=== PATIENT | male | born 1940 | race Caucasian/White ===

== ENCOUNTER 2017-06-28 16:38 | Observation (INO) | payer MEDICARE, BC ==
[2017-06-28 17:06] LABS: #Eosinphils 0.3 thou/uL (0.0-0.7); #Lymphocytes 1.6 thou/uL (1.20-3.40); #Monocytes 0.4 thou/uL (0.11-0.59); #Neutrophils 4.6 thou/uL (1.40-6.50); %Basophils 0.2 % (0.0-1.0); %Eosinophils 3.7 % (0.0-10.0); %Lymphocytes 22.8 % (21.0-51.0); %Monocytes 6.4 % (0.0-10.0); %Neutrophils 66.8 % (42.0-75.0); Mean Corpuscular HGB CONC 33.8 g/dL (32.0-36.0); Mean Corpuscular Hemoglobin 32.2 pg (27.0-31.0); Mean Corpuscular Volume 95.3 fl (80.0-94.0); Mean Platelet Volume 7.3 fL (7.4-10.4); Platelet Count 192 thou/uL (130-400); RBC Distribution Width 12.2 % (11.5-14.5); Red Blood Cell (RBC) Count 4.65 mill/uL (4.70-6.10); White Blood Cell (WBC) Count 6.8 thou/uL (4.8-10.8)
[2017-06-28 17:15] LABS: PTT 31.1 SEC (22.9-36.1); Prothrombin Time 13.4 SEC (12.0-14.7)
[2017-06-28 17:19] LABS: ALT (SGPT) 11 U/L (8-55); AST (SGOT) 15 U/L (5-34); Albumin 4.3 g/dL (3.4-4.8); Alkaline Phosphatase 58 U/L (40-150); Anion Gap 10 mmol/L (10-20); BUN (Urea Nitrogen) 16 mg/dL (8.4-25.7); Bilirubin, Total 0.4 mg/dL (0.2-1.2); Calc. Creatinine Clearance 0 mL/min (70-130); Calcium 9.6 mg/dL (7.8-10.44); Carbon Dioxide 30 mmol/L (23-31); Chloride 103 mmol/L (98-107); Estimated GFR-MDRD 58; Globulin 2.9 g/dL (2.4-3.5); Glucose 106 mg/dL (83-110); Potassium 4.2 mmol/L (3.5-5.1); Protein, Total 7.2 g/dL (5.8-8.1); Sodium 139 mmol/L (136-145)
[2017-06-28 17:23] LABS: CKMB 1.8 ng/mL (0-6.6); Troponin I 0.011 ng/mL (< 0.028)
--- NOTE | 2017-06-28 18:09 | CT ---
CT HEAD NONCONTRAST 06/28/17 HISTORY: TIA. Right facial numbness. Symptoms have resolved. FINDINGS: No comparison. There is no evidence of acute intracranial hemorrhage or infarct. Ventricles appear normal in size, s hape, and position. Mild chronic ischemic small vessel disease is apparent within the periventricular white matter of each cerebral hemisphere. Calcifications present within the arterial structures. Pun ctate calcifications within the sulci of the upper right frontal lobe are not typical appearance and could be within any of the peripheral arteries. There is also subtle hyperdensity associated with the right middle cerebral artery. Given the lack of symptoms to correlate with right middle cerebral art brock thrombus, however, this is likely artifactual in nature. IMPRESSION: 1. No acute infarct is reliably demonstrated on noncontrast CT head. 2. Atherosclerosis. Calcification within the right posterior frontal sulci could be within perip heral arteries, as detailed above. Findings were called to Dr. Guerra in the Emergency Department at 1651 hours. Code CR. POS: ADRIENNE
[2017-06-28] MEDS ORDERED: Ondansetron ODT 4 MG TAB SL PRN (18:56)
[2017-06-28] MEDS ORDERED: Ondansetron HCl/PF 4 MG/2 ML Vial IVP PRN (18:56)
[2017-06-28] MEDS ORDERED: Acetaminophen 325 MG TAB PO PRN (18:56)
[2017-06-28 19:25] VITALS: BMI 25.7
[2017-06-29] MEDS ORDERED: hydrALAZINE 20 MG/ML VIAL SLOW IVP PRN (01:17)
[2017-06-29] MEDS ORDERED: Acetaminophen 500 MG TAB PO PRN (01:17)
[2017-06-29] MEDS ORDERED: cloNIDine 0.1 MG TAB PO PRN (01:17)
[2017-06-29] MEDS ORDERED: Ondansetron ODT 4 MG TAB PO PRN (01:17)
[2017-06-29] MEDS ORDERED: Ondansetron HCl/PF 4 MG/2 ML Vial IVP PRN (01:17)
[2017-06-29 05:50] LABS: Eosinophils 1 % (0-10); Hemoglobin 13.9 g/dL (14.0-18.0); Lymphocytes 24 % (21-51); MDiff Complete? YES; Mean Corpuscular HGB CONC 33.9 g/dL (32.0-36.0); Mean Corpuscular Volume 94.4 fl (80.0-94.0); Mean Platelet Volume 7.3 fL (7.4-10.4); Monocytes 7 % (0-10); Neutrophil 68 % (42-75); Platelet Count 172 thou/uL (130-400); Red Blood Cell (RBC) Count 4.32 mill/uL (4.70-6.10); White Blood Cell (WBC) Count 6.7 thou/uL (4.8-10.8)
[2017-06-29 06:07] LABS: Cardiac Risk 5.7 (Less than 4.5)
--- NOTE | 2017-06-29 06:15 | HP ---
DATE OF ADMISSION: 06/28/2017 PRIMARY CARE PHYSICIAN: Melania Gomez MD CHIEF COMPLAINT: Facial numbness, difficulty with speech. HISTORY OF PRESENT ILLNESS: This is a 76-year-old male who presented to [facility] Emergency Department after experiencing sudden onset right facial droop, numbness, and difficulty w ith speech. The patient states he had just checked an email at home and was not doing anything stren uous when the symptoms began. The patient states his face felt heavy on the right and he had difficu lty with speaking. The patient denied any specific headache, visual disturbance, difficulty with hea ring, or recent fall. The patient denies any recent sick contacts, fever, or exposure history. The symptoms apparently began approximately 1600 hours on 06/28/2017, at which point, the patient was charissa luated by EMS personnel. The patient's symptoms had improved and were resolving by the time of evalu ation in the emergency room. The patient does admit to taking aspirin 81 mg 3 times per week. The p atient has a remote history of smoking approximately 20 years prior to this evaluation. The patient does admit to a personal history of hypertension, medically managed and apparently controlled to his knowledge. The patient states he has had hyperlipidemia, but unable to take statin agents. The goldy ent states he had multiple side effects with the statin agents and was subsequently taken off this re gimen. In the emergency room, the patient underwent general evaluation and general stroke protocol i ncluding CT imaging of the brain showing no acute process. The patient received aspirin 324 mg x1 do se and was referred to the stroke unit for evaluation. PAST MEDICAL HISTORY: 1. Hypertension, medically managed. 2. Hyperlipidemia, no current treatment. 3. History of shingles. PAST SURGICAL HISTORY: 1. Status post left shoulder repair. 2. Status post left carpal tunnel release. 3. Status post bilateral cataract removal. 4. Status post tonsillectomy. CURRENT MEDICATIONS: 1. Aspirin 81 mg 1 tab p.o. every other day. 2. Valsartan/hydrochlorothiazide 80/12.5 mg 1 tab p.o. daily. 3. Nexium 40 mg Monday, Monday, and Monday. 4. Livalo 1 mg p.o. daily. ALLERGIES: No known drug allergies. FAMILY HISTORY: Mother and father with history of heart disease, unknown type. SOCIAL HISTORY: Patient is and resides in [place], [place]. Accompanied by his in the hospital. Remote history of tobacco 20 years prior to this evaluation. No alcohol or illicit drug u se. REVIEW OF SYSTEMS: The following complete review of systems was negative, unless otherwise mentioned in the HPI or below: Constitutional: Weight loss or gain, ability to conduct usual activities. Sk in: Rash, itching. Eyes: Double vision, pain. ENT/Mouth: Nose bleeding, neck stiffness, pain, te nderness. Cardiovascular: Palpitations, dyspnea on exertion, orthopnea. Respiratory: Shortness of breath, wheezing, cough, hemoptysis, fever or night sweats. Gastrointestinal: Poor appetite, abdom inal pain, heartburn, nausea, vomiting, constipation, or diarrhea. Genitourinary: Urgency, frequenc y, dysuria, nocturia. Musculoskeletal: Pain, swelling. Neurologic/Psychiatric: Anxiety, depressio n. Allergy/Immunologic: Skin rash, bleeding tendency. PHYSICAL EXAMINATION: VITAL SIGNS: On admission, blood pressure 116/81, pulse 85, respiratory rate 24, temperature 98.9 de grees Fahrenheit, O2 saturation 99% on room air. GENERAL APPEARANCE: This is a 76-year-old male, alert and oriented x3, pleasant, smiling, in no acute distress. HEENT: Pupils are equal, round, and reactive to light and accommodation. Extraocular muscles are in tact. No scleral icterus, no conjunctival injection. Nares patent. OP is clear. Teeth in good rep air. NECK: Supple. No cervical adenopathy, no thyromegaly, no carotid bruits, no JVD appreciated. Cervi barrie spine with full active and passive range of motion. No meningeal signs appreciated. CHEST: Lungs are clear to auscultation bilaterally. CARDIOVASCULAR: S1, S2 with extra beats noted. ABDOMEN: Rounded, soft, nontender, nondistended. Bowel sounds are positive in all four quadrants. There is no hepatosplenomegaly, no abdominal bruits, no rebound or guarding appreciated. EXTREMITIES: Warm and dry with fair turgor. No clubbing, cyanosis, or asymmetric edema appreciated. Pulses are palpable distally at the dorsalis pedis, posterior tibial, and popliteal arteries bilate rally. Capillary refill less than 2 seconds. NEUROLOGIC: Cranial nerves II through XII are grossly intact. No focal or lateralizing signs apprec iated. No facial asymmetry noted. The patient moves all extremities with equal strength in the uppe r and lower extremities. PERTINENT LABORATORY AND X-RAY FINDINGS: Complete metabolic profile within normal limits. CBC showe d MCV of 95. PT 13.4, INR 1.0, PTT 31.1. CT of the brain without contrast dated 06/28/2017 showed n o acute intracranial process. EKG dated 06/28/2017 by my interpretation shows sinus mechanism with p remature ventricular complexes. Attenuated R waves noted in the precordial leads. Left axis deviati on. ASSESSMENT AND PLAN: 1. Suspected transient ischemic attack. The patient will be placed in observation status on the [facility] sondra Unit. We will continue with general workup to include 2D transthoracic echocardiogram and caroti d Doppler study. The patient's current NIH score was 0. We will not pursue MRI imaging of the brain due to lack of deficits. Continue aspirin 324 mg p.o. daily. Check fasting lipid profile. Continu e general stroke protocol. 2. Hypertension. Resume home antihypertensive regimen to include valsartan/hydrochlorothiazide. Mo nitor serial blood pressures. 3. Question of hyperlipidemia. Check fasting lipid profile in the a.m. 4. Chronic kidney disease, stage 2-3. Stable currently after reviewing electronic medical record an d overall creatinine trend. Avoid nephrotoxic agents and contrast media. 5. Prophylaxis. Sequential compression devices while in bed. Pepcid 20 mg p.o. b.i.d. 6. Code status: Full. Surrogate medical decision maker is patient's spouse.
[2017-06-29] MEDS ORDERED: Valsartan 80 MG TAB PO SCH (09:00)
[2017-06-29] MEDS ORDERED: Famotidine 20 MG TAB PO SCH (09:00)
[2017-06-29] MEDS ORDERED: Hydrochlorothiazide 25 MG TAB PO SCH (09:00)
[2017-06-29] MEDS ORDERED: Aspirin 325 mg Enteric Coated Tablet PO SCH (09:00)
--- NOTE | 2017-06-29 09:16 | ULT ---
CAROTID ULTRASOUND: History: Possible TIA. Comparison: None. Technique: Grayscale, color flow, doppler imaging, and spectral waveform analysis is performed in the carotid vertebral arteries. FINDINGS: Right carotid: There are small foci of calcified plaque scattered throughout the carotid artery. Peak systolic velocity of the common carotid is 125.8 cm/sec. Peak systolic velocity internal carotid is 142.2 cm/sec. Systolic ICA/CCA ratio is 1.1. Left carotid: There is scattered small calcified plaque throughout the left carotid artery. Peak syst olic velocity of the common carotid is 112.3 cm/sec. Peak systolic velocity internal carotid is 138.4 cm/sec. Systolic ICA/CCA ratio is 1.2. Antegrade flow in both vertebral arteries. IMPRESSION: Elevated velocities suggesting moderate (50-69%) stenosis of the left and right internal carotid. Bet ter interrogation with CT angiogram of the neck is recommended. POS: ADRIENNE
[2017-06-29 11:45] VITALS: BP 130/75; TEMP 98
[2017-06-29] MEDS ORDERED: ISOVUE-370 76%-LOCM 1 ML ONE (13:29)
--- NOTE | 2017-06-29 14:44 | PDOC.PN ---
- Subjective Encounter Start Date: 06/29/17 Encounter Start Time: 14:42 Mr. Suero was seen today in follow-up. she says the numbness has completely resolved on the right side. He never had any upper or lower extremity weakness. - Objective Resuscitation Status: Resuscitation Status FULL:Full Resuscitation MAR Reviewed: Yes Vital Signs & Weight: Vital Signs (12 hours) Temp Pulse Resp BP BP Pulse Ox 06/29/17 11:25 98 F 77 18 130/75 97 06/29/17 08:00 97 F L 65 16 06/29/17 07:05 97 F L 65 16 147/66 H 97 06/29/17 03:33 98.3 F 40 L 16 114/63 95 Weight Weight 190 lb I&O: 06/28/17 06/29/17 06/30/17 06:59 06:59 06:59 Intake Total 380 600 Balance 380 600 Result Diagrams: 06/29/17 05:23 06/28/17 16:59 Phys Exam - Physical Examination HEENT: PERRLA Respiratory: no wheezing, no rales, no rhonchi, clear to auscultation bilateral Cardiovascular: RRR, no significant murmur Gastrointestinal: soft, non-tender, positive bowel sounds Musculoskeletal: no edema Neurological: non-focal Dx/Plan (1) Transient ischemic attack Status: Acute (2) Hypertension Code(s): I10 - ESSENTIAL (PRIMARY) HYPERTENSION Status: Acute (3) Dyslipidemia Code(s): E78.5 - HYPERLIPIDEMIA, UNSPECIFIED Status: Acute - Plan * TIA- patient had evidence of elevated velocities on his carotid doppler- will check a CTA * HTN - blood pressure is stable * Patient has been in sinus rhythm, but his heart rate is variable- will monitor * Hyperlipidemia- he is unable to tolerate statin's- this was discussed in detail, includingtrying it once a week, and possibly aong with Co- Q-10..
--- NOTE | 2017-06-29 16:37 | CT ---
CTA NECK WITH 3D VOLUME RENDERING CT NECK WITH CONTRAST 06/29/17 CLINICAL HISTORY: Vascular disease. History of carotid stenosis and TIA. FINDINGS: The imaged aortic arch reveals calcification without high grade stenosis. There is calcification at t he origins as well as noncalcified plaque at the origins of the great vessels that emanate from the a ortic arch with mild associated luminal narrowing. There is scattered calcified and noncalcified plaq ue of the bilateral common carotid arteries with mild associated stenosis. There is extensive calcifi ed and noncalcified plaque at the level of the right carotid bulb which my NASCET criteria results in approximate 60% focal stenosis. In addition, there is extensive calcified and noncalcified plaque at the level of the left carotid bulb producing approximately 50% focal stenosis. There is focal calcif ication mild to moderate in degree at the origin of the left vertebral artery with tortuosity within this region which does somewhat limit evaluation for the exact degree of associated stenosis. There i s also calcification producing mild stenosis at the distal left vertebral artery within the V4 segmen t. Suggestion of soft plaque although limited by streak artifact at the origin/proximal aspect of the right vertebral artery with a moderate associated focal stenosis. There is partial termination of th e right vertebral artery in PICA. Calcification is seen at the partially imaged aspects of each intra cranial carotid artery. Patchy opacities are incidentally noted within the upper lung zones. There is osseous degenerative change regionally. IMPRESSION: Multifocal atherosclerotic vascular disease in major arterial system of the neck producing an approxi mate 60% focal stenosis at the proximal aspect of the cervical right ICA and approximately 50% focal stenosis of the proximal aspect of the cervical left ICA. Additional details are described above. POS: ADRIENNE
[2017-06-29] MEDS ORDERED: Atorvastatin Calcium 20 MG TAB PO SCH (21:00)
--- NOTE | 2017-06-30 12:41 | DIS ---
DATE OF ADMISSION: 06/28/2017 DATE OF DISCHARGE: 06/29/2017 PRIMARY CARE PHYSICIAN: Melania Gomez MD DISCHARGE DISPOSITION: Home. PRIMARY DISCHARGE DIAGNOSES: 1. Transient ischemic attack. 2. Hypertension. 3. Hyperlipidemia. DISCHARGE MEDICATIONS: Include aspirin 81 mg daily, Lipitor 10 mg at bedtime, valsartan/hydrochlorot hiazide 80/12.5 daily. PROCEDURES DONE DURING ADMISSION: The patient had a CT scan of the brain in which there was no acute infarct. There was some arteriosclerosis and calcification of the right posterior frontal sulci. T he patient had an echocardiogram in which the ejection fraction was estimated at 55%-60%. There was some septal bounce consistent with bundle branch morphology, RBBB morphology and also there was a gra de I/III diastolic dysfunction. The patient had bilateral carotid Dopplers in which there was an yoly vated velocity suggesting moderate 50%-69% stenosis of the left and right internal carotid artery. T he patient had a CT angiogram of the carotids and vertebral system or CTA of the neck in which there was multifocal atherosclerosis and vascular disease in the major arterial system of the neck, produci ng an approximately 50% focal stenosis of the proximal aspect of the cervical right ICA and approxima tely 50% stenosis in the proximal aspect of the cervical left ICA. CODE STATUS: FULL CODE. ALLERGIES: No known drug allergies. HOSPITAL COURSE: Mr. Suero is a pleasant 76-year-old gentleman who presented to the emergency room with complaints of sudden right-sided facial droop, numbness and difficulty with speech. Symptoms l asted for several hours, but then completely resolved. He was placed in observation and had an evalu ation for transient ischemic attack. It was noted that he had some moderate stenosis in the right IC A. This was discussed with the patient and patient made the decision to talk with his primary care elias tesfaye about this. The patient decided to discuss primary care physician and get transferred to a vascular surgeon or referred to vascular surgeon in the outpatient setting. He had not been taking a statin at the time as he said he had quite a bit of side effects from it. However, given these new findings, he said he would be willing to try this again possibly along with CoQ10 and since his sympt oms completely resolved, he will be discharged home with close outpatient followup.
--- NOTE | 2017-07-01 13:09 | EKG ---
Test Reason : Blood Pressure : / mmHG Vent. Rate : 082 BPM Atrial Rate : 082 BPM P-R Int : 178 ms QRS Dur : 086 ms QT Int : 386 ms P-R-T Axes : 050 -02 039 degrees QTc Int : 450 ms Sinus rhythm with frequent Premature ventricular complexes Cannot rule out Anterior infarct , age undetermined Abnormal ECG Confirmed by NAHUM SAAB [id number]), market editor HIEU SALDIVAR ([id number]) on 07/01/2017 1:08:58 PM Referred By: Confirmed By:NAHUM SAAB
== END 2017-06-29 18:36 | disposition home or self-care (01) ==
LOC: ERS 16:38 → 2SE 18:03
PROVIDERS: ADMIT Internal Medicine; ATTEND Internal Medicine
DX: G45.9 Transient cerebral ischemic attack, unspecified (principal); I10 Essential (primary) hypertension; E78.5 Hyperlipidemia, unspecified; Z79.82 Long term (current) use of aspirin; Z79.899 Other long term (current) drug therapy; Z98.890 Other specified postprocedural states; Z87.891 Personal history of nicotine dependence; Z82.49 Family history of ischemic heart disease and other diseases of the circulatory system
CPT/HCPCS: 70450; 70498; 80053; 80061; 82553; 82962; 84484; 85007; 85025; 85027; 85610; 85730; 93005; 93306; 93880; 94760; 99285; G0378; 36415; 36416

== ENCOUNTER 2018-10-09 13:01 | Outpatient (CLI) | payer MEDICARE, BC ==
--- NOTE | 2018-10-09 13:35 | RAD ---
Lumbar spine 5 views HISTORY: Low back pain. FINDINGS: There are 5 lumbar type vertebrae. Pedicles and pars interarticularis are intact. Vertebral body heights and alignment are maintained. Prominent osteophytosis of the lower facets and the upper vertebral bodies. No acute fracture or dislocation. Calcification over the arterial structures. Degenerative changes of the hips. IMPRESSION: Degenerative changes lumbar spine. No acute osseous abnormalities are demonstrated. Atherosclerosis
--- NOTE | 2018-10-09 13:35 | RAD ---
Exam:2 views right hip HISTORY: Pain COMPARISON: None FINDINGS: Contour of the femoral head is maintained. Mild loss of the inferior joint space height. IMPRESSION: Mild narrowing of the inferior joint space height.
--- NOTE | 2018-10-09 13:36 | RAD ---
Exam:2 views left hip HISTORY: Pain COMPARISON: None FINDINGS: Contour of the femoral head is maintained. Mild loss of the inferior joint space height. No fracture. IMPRESSION: Mild loss of the inferior joint space height.
== END 2018-10-09 13:02 | disposition home or self-care (01) ==
LOC: SCSRAD 13:01
PROVIDERS: ATTEND Family Medicine
DX: Z00.00 Encounter for general adult medical examination without abnormal findings (principal); M25.551 Pain in right hip; M25.552 Pain in left hip; M47.816 Spondylosis without myelopathy or radiculopathy, lumbar region; I70.90 Unspecified atherosclerosis; M25.851 Other specified joint disorders, right hip
CPT/HCPCS: 72110

== ENCOUNTER 2020-10-20 12:14 | Outpatient (CLI) | payer MEDICARE, BC | END 2020-10-20 12:15 | disposition home or self-care (01) | LOC: BICRAD 12:14 | PROVIDERS: ATTEND Family Medicine | DX: R10.11 Right upper quadrant pain (principal) | CPT/HCPCS: 74022 ==

== ENCOUNTER 2023-04-28 10:47 | Emergency (ER) | payer MEDICARE, BC ==
[2023-04-28 12:31] LABS: #Eosinphils 0.2 thou/uL (0.0-0.7); #Monocytes 0.4 thou/uL (0.11-0.59); #Neutrophils 4.4 thou/uL (1.40-6.50); %Basophils 0.5 % (0.0-1.0); %Eosinophils 2.4 % (0.0-10.0); %Lymphocytes 20.7 % (21.0-51.0); %Monocytes 6.6 % (0.0-10.0); %Neutrophils 69.3 % (42.0-75.0); Hematocrit 41.9 % (42.0-52.0); Hemoglobin 14.2 g/dL (14.0-18.0); Mean Corpuscular HGB CONC 33.9 g/dL (32.0-36.0); Mean Corpuscular Hemoglobin 32.5 pg (27.0-31.0); Mean Corpuscular Volume 95.9 fl (78.0-98.0); Mean Platelet Volume 9.5 fL (7.4-10.4); Platelet Count 186 10x3/uL (130-400); RBC Distribution Width 12.5 % (11.5-14.5); Red Blood Cell (RBC) Count 4.37 mill/uL (4.70-6.10); White Blood Cell (WBC) Count 6.3 10x3/uL (4.8-10.8)
[2023-04-28 12:56] LABS: ALT (SGPT) 13 U/L (8-55); AST (SGOT) 21 U/L (5-34); Albumin 4.2 g/dL (3.4-4.8); Alkaline Phosphatase 60 U/L (40-110); Anion Gap 12 mmol/L (10-20); BUN (Urea Nitrogen) 12 mg/dL (8.4-25.7); Bilirubin, Total 0.7 mg/dL (0.2-1.2); Calc. Creatinine Clearance 0 mL/min (70-130); Calcium 9.3 mg/dL (7.8-10.44); Carbon Dioxide 27 mmol/L (23-31); Chloride 102 mmol/L (98-107); Estimated GFR 86; Globulin 3.1 g/dL (2.4-3.5); Glucose 94 mg/dL (83-110); Potassium 3.7 mmol/L (3.5-5.1); Protein, Total 7.3 g/dL (5.8-8.1); Sodium 137 mmol/L (136-145)
[2023-04-28 13:01] LABS: Troponin I Less than 0.010 ng/mL (< 0.028)
== END 2023-04-28 13:21 | disposition home or self-care (01) ==
LOC: ERS 10:47
DX: R68.84 Jaw pain (principal); I10 Essential (primary) hypertension; E78.5 Hyperlipidemia, unspecified; Z79.82 Long term (current) use of aspirin
CPT/HCPCS: 36415; 70450; 71045; 80053; 84484; 85025; 93005

== ENCOUNTER 2024-01-26 09:23 | Outpatient (CLI) | payer MEDICARE ==
[2024-01-26 11:24] LABS: #Basophils 0.05 10x3/uL (0.0-0.2); %Basophils 0.8 % (0.0-1.0); %Eosinophils 4.6 % (0.0-10.0); %Lymphocytes 23.8 % (21.0-51.0); %Monocytes 7.7 % (0.0-10.0); %Neutrophils 62.5 % (42.0-75.0); Hematocrit 42.7 % (42.0-52.0); Hemoglobin 14.6 g/dL (14.0-18.0); Mean Corpuscular HGB CONC 34.2 g/dL (32.0-36.0); Mean Corpuscular Hemoglobin 32.7 pg (27.0-31.0); Mean Corpuscular Volume 95.5 fL (78.0-98.0); Mean Platelet Volume 10.1 fL (7.4-10.4); Platelet Count 182 10x3/uL (130-400); RBC Distribution Width 12.9 % (11.5-14.5); Red Blood Cell (RBC) Count 4.47 mill/uL (4.70-6.10)
[2024-01-26 11:40] LABS: ALT (SGPT) 16 U/L (8-55); AST (SGOT) 25 U/L (5-34); Alkaline Phosphatase 52 U/L (40-110); Anion Gap 11 mmol/L (10-20); BUN (Urea Nitrogen) 13 mg/dL (8.4-25.7); Bilirubin, Total 0.6 mg/dL (0.2-1.2); Calc. Creatinine Clearance 0 mL/min (70-130); Calcium 9.5 mg/dL (7.8-10.44); Carbon Dioxide 30 mmol/L (23-31); Chloride 100 mmol/L (98-107); Estimated GFR 74; Globulin 3.2 g/dL (2.4-3.5); Glucose 99 mg/dL (83-110); Potassium 3.4 mmol/L (3.5-5.1); Protein, Total 7.2 g/dL (5.8-8.1); Sodium 138 mmol/L (136-145)
== END 2024-01-26 09:24 | disposition home or self-care (01) ==
LOC: LABBT 09:23
PROVIDERS: ATTEND Internal Medicine Cardiovascular Disease
DX: Z01.812 Encounter for preprocedural laboratory examination (principal); I20.9 Angina pectoris, unspecified; R94.39 Abnormal result of other cardiovascular function study
CPT/HCPCS: 80053; 85025

== ENCOUNTER 2024-02-01 05:31 | Inpatient (IN) | payer MEDICARE ==
[2024-02-01] MEDS ORDERED: Midazolam HCl 2 mg/2 ml Vial ONE (06:25)
[2024-02-01] MEDS ORDERED: fentaNYL 50 mcg/mL 1 mL Vial ONE (06:25)
[2024-02-01] MEDS ORDERED: Heparin 10,000 UNITS/ 10 ML VIAL ONE (06:26)
[2024-02-01] MEDS ORDERED: Nitroglycerin 50 MG/250 ML BOT 250 ML ONE (06:26)
[2024-02-01] MEDS ORDERED: Verapamil 5 MG/2 ML VIAL ONE (06:26)
[2024-02-01] MEDS ORDERED: Atropine Sulfate 1 mg/10 ml Syringe ONE (07:37)
[2024-02-01] MEDS ORDERED: PHENYLEPHRINE-NS 100 MCG/ML 10 ML SYRINGE ONE (07:37)
[2024-02-01] MEDS ORDERED: Ondansetron PF 4 MG/2 ML Vial IVP PRN (08:24)
[2024-02-01] MEDS ORDERED: Senokot S 8.6-50 MG TAB PO PRN (08:24)
[2024-02-01] MEDS ORDERED: Acetaminophen 325 MG TAB PO PRN (08:24)
[2024-02-01] MEDS ORDERED: Calcium Carbonate 500 MG ChewTAB PO PRN (08:24)
[2024-02-01] MEDS ORDERED: Non-Formulary Item 1 EACH (Oxybutynin Chloride [Oxybutynin Chloride Er] 10 MG Tab.Er.24) PO SCH (09:00)
[2024-02-01] MEDS ORDERED: hydrALAZINE 20 MG/ML VIAL SLOW IVP PRN (09:00)
[2024-02-01] MEDS ORDERED: hydrALAZINE 20 MG/ML VIAL ONE (09:05)
[2024-02-01] MEDS: Hydrochlorothiazide 25 MG TAB PO SCH (11:25)
[2024-02-01] MEDS: Isosorbide Mononitrate 30 MG ER.TAB PO SCH (11:25)
[2024-02-01] MEDS: Ezetimibe 10 MG TAB PO SCH (11:25)
[2024-02-01] MEDS: Oxybutynin ER 5 MG TAB PO SCH (11:26)
[2024-02-01] MEDS: Tamsulosin HCl 0.4 MG CAP PO SCH (11:26)
[2024-02-01] MEDS: Meloxicam 7.5 MG TAB PO SCH (11:26)
[2024-02-01] MEDS: CO Q-10 CAPSULE 100 MG PO SCH (11:26)
[2024-02-01] MEDS ORDERED: Enoxaparin 40 MG (0.4 mL) SYRINGE ONE (11:49)
[2024-02-01] MEDS: Enoxaparin 40 MG (0.4 mL) SYRINGE SC SCH (12:02)
[2024-02-01] MEDS ORDERED: Iopamidol 370 76% 100 ML VIAL ONE (12:24)
[2024-02-01] MEDS: Aspirin Chewable 81 MG TAB PO SCH (12:52)
[2024-02-01 16:55] LABS: #Basophils 0.03 10x3/uL (0.0-0.2); %Basophils 0.4 % (0.0-1.0); %Eosinophils 2.6 % (0.0-10.0); %Lymphocytes 15.6 % (21.0-51.0); %Monocytes 7.2 % (0.0-10.0); %Neutrophils 73.6 % (42.0-75.0); Hematocrit 44.7 % (42.0-52.0); Hemoglobin 15.5 g/dL (14.0-18.0); Mean Corpuscular HGB CONC 34.7 g/dL (32.0-36.0); Mean Corpuscular Hemoglobin 32.7 pg (27.0-31.0); Mean Corpuscular Volume 94.3 fL (78.0-98.0); Mean Platelet Volume 9.6 fL (7.4-10.4); Platelet Count 187 10x3/uL (130-400); RBC Distribution Width 12.7 % (11.5-14.5); Red Blood Cell (RBC) Count 4.74 mill/uL (4.70-6.10)
[2024-02-01 17:15] LABS: INR-International Normal Ratio 1.1
[2024-02-01 17:16] LABS: PTT 36.1 sec (22.9-36.1)
[2024-02-02 04:39] LABS: #Basophils Less than 0.03 10x3/uL (0.0-0.2); %Basophils 0.3 % (0.0-1.0); %Eosinophils 3.5 % (0.0-10.0); %Lymphocytes 19.9 % (21.0-51.0); %Monocytes 8.4 % (0.0-10.0); %Neutrophils 67.6 % (42.0-75.0); Hematocrit 38.6 % (42.0-52.0); Hemoglobin 13.7 g/dL (14.0-18.0); Mean Corpuscular HGB CONC 35.5 g/dL (32.0-36.0); Mean Corpuscular Hemoglobin 32.6 pg (27.0-31.0); Mean Corpuscular Volume 91.9 fL (78.0-98.0); Mean Platelet Volume 9.6 fL (7.4-10.4); Platelet Count 167 10x3/uL (130-400); RBC Distribution Width 12.8 % (11.5-14.5)
[2024-02-02 04:58] LABS: Hemoglobin A1c 5.4 % (4.0-6.0)
[2024-02-02] MEDS ORDERED: Bupivacaine PF 0.5% 30 ML VIAL ONE (06:44)
[2024-02-02] MEDS ORDERED: EPINEPHrine 1 MG/ML VIAL ONE (06:44)
[2024-02-02] MEDS ORDERED: Dexamethasone 4 mg/ml Vial ONE (06:44)
[2024-02-02] MEDS ORDERED: PHENYLEPHRINE-NS 100 MCG/ML 10 ML SYRINGE ONE (06:44)
[2024-02-02] MEDS ORDERED: Albumin 5% 0 ML ONE (06:45)
[2024-02-02 07:36] LABS: ALT (SGPT) 14 U/L (8-55); AST (SGOT) 23 U/L (5-34); Albumin 3.6 g/dL (3.4-4.8); Alkaline Phosphatase 48 U/L (40-110); Anion Gap 12 mmol/L (10-20); BUN (Urea Nitrogen) 17 mg/dL (8.4-25.7); Bilirubin, Total 0.5 mg/dL (0.2-1.2); Calc. Creatinine Clearance 58 mL/min (70-130); Calcium 9.2 mg/dL (7.8-10.44); Carbon Dioxide 27 mmol/L (23-31); Chloride 104 mmol/L (98-107); Cholesterol 159 mg/dl (< 200 Desired); Estimated GFR 60; Globulin 2.8 g/dL (2.4-3.5); Glucose 82 mg/dL (83-110); HDL Cholesterol 32 mg/dL (>60 Neg Risk); LDL Cholesterol, Calculated 80 mg/dL; Potassium 3.1 mmol/L (3.5-5.1); Protein, Total 6.4 g/dL (5.8-8.1); Sodium 140 mmol/L (136-145); Triglycerides 237 mg/dL (Less than 150)
[2024-02-02] MEDS ORDERED: Electrolyte Replacement Protocol 1 EACH FS SCH (08:00)
[2024-02-02] MEDS ORDERED: CEFAZOLIN 2 GM VIAL ONE (08:07)
[2024-02-02] MEDS ORDERED: Sodium Chloride 0.9% 100 ML ONE (08:07)
[2024-02-02] MEDS ORDERED: Fentanyl 250 MCG/5 ML VIAL ONE (08:40)
[2024-02-02] MEDS ORDERED: PROPOFOL 20 ML ONE (08:40)
[2024-02-02] MEDS ORDERED: Midazolam HCl 2 mg/2 ml Vial ONE (08:40)
[2024-02-02] MEDS ORDERED: Lidocaine 1% PF 5 ML VIAL ONE (08:44)
[2024-02-02] MEDS ORDERED: Rocuronium Bromide 10 MG/ML (10ML VIAL) ONE (08:44)
[2024-02-02] MEDS ORDERED: NOREPINEPHRINE 8 MG/250 ML-D5W 0 ML ONE (08:58)
[2024-02-02] MEDS ORDERED: Milrinone 10 MG/10 ML VIAL ONE (08:59)
[2024-02-02] MEDS ORDERED: FLU (Fluad Triv) TS24-25 (65UP)/MF59C/PF 45 MCG/0.5 ML Syringe IM ONE (09:00)
[2024-02-02] MEDS ORDERED: Pantoprazole DR 40 MG TAB PO SCH (09:00)
[2024-02-02] MEDS ORDERED: CEFAZOLIN 2 GM in Sodium Chloride 0.9% 100 ML IVPB SCH (10:00)
[2024-02-02] MEDS ORDERED: Magnesium 2 GM/50 ML(in water) 2 GM in Premix 1 BAG IVPB SCH (10:00)
[2024-02-02] MEDS ORDERED: Heparin 30,000 units/30 ml VIAL ONE (12:44)
[2024-02-02] MEDS ORDERED: Magnesium 5 GM/10 ML VIAL ONE (12:44)
[2024-02-02] MEDS ORDERED: Heparin 5,000 UNITS/ML VIAL ONE (12:44)
[2024-02-02] MEDS ORDERED: Protamine Sulfate 250 MG/25 ML VIAL ONE (12:44)
[2024-02-02] MEDS ORDERED: Sodium Bicarb 50 mEq/50 ML VIAL ONE (12:44)
[2024-02-02] MEDS ORDERED: Calcium Chloride 1 GM/10 ML Abboject SYRINGE ONE (12:44)
[2024-02-02] MEDS ORDERED: Vancomycin 1 GM VIAL ONE (12:44)
[2024-02-02] MEDS ORDERED: Mannitol 12.5 GM/50 ML ONE (12:44)
[2024-02-02] MEDS ORDERED: Papaverine 60 MG/2 ML VIAL ONE (12:44)
[2024-02-02] MEDS ORDERED: Ondansetron PF 4 MG/2 ML Vial ONE (12:44)
[2024-02-02] MEDS ORDERED: Potassium Chloride 60 mEq (30 mL) VIAL ONE (12:44)
[2024-02-02] MEDS ORDERED: Thrombin 5000 UNITS/5 ML VIAL ONE (12:44)
[2024-02-02] MEDS ORDERED: Cardioplegic Soln 1,000 ML BAG ONE (12:44)
[2024-02-02] MEDS ORDERED: Aminocaproic Acid 5 GM/20 ML VIAL ONE (12:44)
[2024-02-02] MEDS ORDERED: Lidocaine 2% PF 100 mg/5 ml Syringe ONE (12:44)
[2024-02-02] MEDS ORDERED: Bisacodyl 10 MG SUPP PR PRN (13:10)
[2024-02-02] MEDS ORDERED: Guaifenesin DM 100-10/5 ML UDCUP PO PRN (13:10)
[2024-02-02] MEDS ORDERED: Mag-Al 1200 mg/1200 mg/30 ML UDCUP PO PRN (13:10)
[2024-02-02] MEDS ORDERED: Ipratropium/Albuterol 3 ML NEB NEB PRN (13:10)
[2024-02-02] MEDS ORDERED: Albumin 5% 12.5 GM (250 mL) BOT IVPB PRN (13:10)
[2024-02-02] MEDS ORDERED: fentaNYL 50 mcg/mL 1 mL Vial SLOW IVP PRN ×2 (13:10)
[2024-02-02] MEDS ORDERED: NOREPINEPHRINE 8 MG/250 ML-D5W 250 ML IVPB PRN (13:10)
[2024-02-02] MEDS ORDERED: traMADol HCl 50 MG TAB PO PRN (13:10)
[2024-02-02] MEDS ORDERED: Ondansetron PF 4 MG/2 ML Vial IVP PRN (13:10)
[2024-02-02 13:40] LABS: Actual Bicarbonate (HCO3a) 22.2 mEq/L (22-28); Base Excess (BEa) -2.6 mEq/L (-2.0 to +3.0); CO2 Tension 38.6 mmHg (35.0-45.0); Carboxyhemoglobin (COHb) 0.5 gm% (0.0-3.0); Hematocrit-ABG 39 % (42.0-52.0); Hemoglobin (Hb) 13.3 g/dL (14.0-18.0); O2 Tension (PaO2), arterial 105.4 mmHg (> 60.0); Potassium - ABG Lab 3.14 mmol/L (3.70-5.30); pH, Arterial 7.377 (7.35-7.45)
[2024-02-02 13:41] LABS: Puncture Site Arterial Line
[2024-02-02] MEDS: D5 1/2 NS w/20 mEq KCL 1,000 ML IV SCH (13:43)
[2024-02-02] MEDS: Albumin 5% 12.5 GM (250 mL) BOT IVPB PRN (13:44)
[2024-02-02] MEDS: Insulin Regular, Human 100 UNIT/ML 10 ML VIAL SC PRN (13:44)
[2024-02-02] MEDS ORDERED: Glucagon 1 MG/ML KIT SC PRN (13:45)
[2024-02-02] MEDS ORDERED: INSULIN REGULAR IN 0.9 % NACL 100 UNITS in Premix 1 BAG IVPB SCH (13:45)
[2024-02-02] MEDS ORDERED: Dextrose 50% Abboject 50 ML SYRINGE SLOW IVP PRN (13:45)
[2024-02-02] MEDS ORDERED: Dextrose 5% in Water 1,000 ML IV PRN (13:45)
[2024-02-02 13:53] LABS: #Basophils 0.04 10x3/uL (0.0-0.2); %Basophils 0.3 % (0.0-1.0); %Eosinophils 1.1 % (0.0-10.0); %Lymphocytes 9.2 % (21.0-51.0); %Monocytes 3.5 % (0.0-10.0); %Neutrophils 83.5 % (42.0-75.0); Hematocrit 36.3 % (42.0-52.0); Hemoglobin 12.7 g/dL (14.0-18.0); Mean Corpuscular Hemoglobin 33.1 pg (27.0-31.0); Mean Corpuscular Volume 94.5 fL (78.0-98.0); Mean Platelet Volume 9.7 fL (7.4-10.4); Platelet Count 143 10x3/uL (130-400); RBC Distribution Width 12.8 % (11.5-14.5); Red Blood Cell (RBC) Count 3.84 mill/uL (4.70-6.10)
[2024-02-02 14:08] LABS: Anion Gap 11 mmol/L (10-20); BUN (Urea Nitrogen) 14 mg/dL (8.4-25.7); Calc. Creatinine Clearance 82 mL/min (70-130); Calcium 8.4 mg/dL (7.8-10.44); Carbon Dioxide 22 mmol/L (23-31); Chloride 108 mmol/L (98-107); Estimated GFR 86; Glucose 146 mg/dL (83-110); Potassium 3.1 mmol/L (3.5-5.1); Sodium 138 mmol/L (136-145)
[2024-02-02] MEDS: Morphine 2 MG/ML VIAL SLOW IVP PRN (14:10)
[2024-02-02 14:12] LABS: INR-International Normal Ratio 1.3; PTT 29.5 sec (22.9-36.1); Prothrombin Time 15.9 sec (12.0-14.7)
[2024-02-02] MEDS: Morphine 4 MG/ML VIAL ONE (14:20)
[2024-02-02] MEDS: NOREPINEPHRINE 8 MG/250 ML-D5W 250 ML ONE (14:21)
[2024-02-02] MEDS: Nitroglycerin 50 MG/250 ML BOT 0 ML ONE (14:21)
[2024-02-02] MEDS: Post-Op Insulin Drip Protocol IVPB ONE (14:25)
[2024-02-02] MEDS: Potassium Chloride 40 MEQ in Premix 1 BAG IVPB SCH (14:25)
[2024-02-02] MEDS: Potassium Chloride 20 MEQ (100 mL) BAG IVPB PRN (14:26)
[2024-02-02] MEDS: Magnesium 2 GM/50 ML(in water) 2 GM in Premix 1 BAG IVPB SCH (14:26)
[2024-02-02] MEDS: Nitroglycerin 50 MG/250 ML BOT 250 ML IVPB PRN (15:07)
[2024-02-02] MEDS: CEFAZOLIN 2 GM in Sodium Chloride 0.9% 100 ML IVPB SCH (15:15)
[2024-02-02 16:08] VITALS: BMI 27.4
[2024-02-02] MEDS: Ketorolac Tromethamine 30 MG (1 mL) VIAL IVP SCH (17:50)
[2024-02-02 19:22] LABS: Hematocrit 39.5 % (42.0-52.0); Hemoglobin 13.6 g/dL (14.0-18.0)
[2024-02-02 19:32] LABS: Potassium 3.9 mmol/L (3.5-5.1)
[2024-02-02] MEDS: Famotidine/PF 20 mg/2ml Vial SLOW IVP SCH (20:31)
[2024-02-02 22:38] LABS: Base Excess (BEa) -5.8 mEq/L (-2.0 to +3.0); Calcium, Ionized (arterial) 1.09 mmol/L (1.12-1.30); Carboxyhemoglobin (COHb) 0.6 gm% (0.0-3.0); Hematocrit-ABG 40 % (42.0-52.0); Hemoglobin (Hb) 13.7 g/dL (14.0-18.0); O2 Tension (PaO2), arterial 144.8 mmHg (> 60.0); Potassium - ABG Lab 4.19 mmol/L (3.70-5.30); pH, Arterial 7.458 (7.35-7.45)
[2024-02-02 22:40] LABS: ALV-art Gradient 40.225 mmHg (0-20); Puncture Site R ALINE
[2024-02-03] MEDS: hydrALAZINE 20 MG/ML VIAL SLOW IVP PRN (02:46)
[2024-02-03] MEDS: traMADol HCl 50 MG TAB PO PRN (04:58)
[2024-02-03 05:07] LABS: #Basophils Less than 0.03 10x3/uL (0.0-0.2); #Eosinophils Less than 0.03 10x3/uL (0.0-0.7); %Basophils 0.1 % (0.0-1.0); %Lymphocytes 3.8 % (21.0-51.0); %Monocytes 6.1 % (0.0-10.0); %Neutrophils 89.3 % (42.0-75.0); Hemoglobin 12.4 g/dL (14.0-18.0); Mean Corpuscular HGB CONC 34.4 g/dL (32.0-36.0); Mean Corpuscular Hemoglobin 32.5 pg (27.0-31.0); Mean Corpuscular Volume 94.5 fL (78.0-98.0); Mean Platelet Volume 9.8 fL (7.4-10.4); Platelet Count 161 10x3/uL (130-400); RBC Distribution Width 13.2 % (11.5-14.5); Red Blood Cell (RBC) Count 3.81 mill/uL (4.70-6.10)
[2024-02-03 05:32] LABS: Anion Gap 11 mmol/L (10-20); BUN (Urea Nitrogen) 17 mg/dL (8.4-25.7); Calc. Creatinine Clearance 80 mL/min (70-130); Calcium 8.2 mg/dL (7.8-10.44); Carbon Dioxide 21 mmol/L (23-31); Chloride 109 mmol/L (98-107); Estimated GFR 85; Glucose 160 mg/dL (83-110); Potassium 3.6 mmol/L (3.5-5.1); Sodium 137 mmol/L (136-145)
[2024-02-03] MEDS: Magnesium 2 GM/50 ML(in water) 2 GM in Premix 1 BAG IVPB SCH (07:47)
[2024-02-03] MEDS: Aspirin 325 MG TAB PO SCH (07:48)
[2024-02-03] MEDS ORDERED: Insulin Glargine 30 UNITS/0.3 ML VIAL SC PRN (13:40)
[2024-02-03] MEDS: Metoprolol Tartrate 25 MG TAB PO SCH (21:04)
[2024-02-03] MEDS: Acetaminophen 325 MG TAB PO PRN (21:05)
[2024-02-04 06:15] LABS: #Basophils Less than 0.03 10x3/uL (0.0-0.2); %Basophils 0.1 % (0.0-1.0); %Eosinophils 0.2 % (0.0-10.0); %Lymphocytes 8.2 % (21.0-51.0); %Monocytes 7.1 % (0.0-10.0); %Neutrophils 83.9 % (42.0-75.0); Hematocrit 29.1 % (42.0-52.0); Hemoglobin 9.9 g/dL (14.0-18.0); Mean Corpuscular Hemoglobin 32.7 pg (27.0-31.0); Mean Platelet Volume 10.7 fL (7.4-10.4); Platelet Count 141 10x3/uL (130-400); RBC Distribution Width 13.4 % (11.5-14.5); Red Blood Cell (RBC) Count 3.03 mill/uL (4.70-6.10)
[2024-02-04 06:40] LABS: Anion Gap 9 mmol/L (10-20); BUN (Urea Nitrogen) 26 mg/dL (8.4-25.7); Calc. Creatinine Clearance 72 mL/min (70-130); Calcium 8.2 mg/dL (7.8-10.44); Carbon Dioxide 25 mmol/L (23-31); Chloride 104 mmol/L (98-107); Estimated GFR 75; Glucose 110 mg/dL (83-110); Magnesium 2.4 mg/dL (1.6-2.6); Potassium 3.5 mmol/L (3.5-5.1); Sodium 134 mmol/L (136-145)
[2024-02-04] MEDS: Bisacodyl 5 MG TAB PO PRN (08:59)
[2024-02-04] MEDS: Furosemide 20 MG (2 mL) VIAL SLOW IVP SCH ×2 (13:21→17:08)
[2024-02-05 05:08] LABS: #Basophils Less than 0.03 10x3/uL (0.0-0.2); %Basophils 0.1 % (0.0-1.0); %Eosinophils 0.7 % (0.0-10.0); %Lymphocytes 11.9 % (21.0-51.0); %Monocytes 6.8 % (0.0-10.0); %Neutrophils 79.7 % (42.0-75.0); Hematocrit 28.8 % (42.0-52.0); Hemoglobin 9.9 g/dL (14.0-18.0); Mean Corpuscular HGB CONC 34.4 g/dL (32.0-36.0); Mean Corpuscular Hemoglobin 32.7 pg (27.0-31.0); Platelet Count 132 10x3/uL (130-400); RBC Distribution Width 13.2 % (11.5-14.5); Red Blood Cell (RBC) Count 3.03 mill/uL (4.70-6.10)
[2024-02-05 05:30] LABS: Anion Gap 11 mmol/L (10-20); BUN (Urea Nitrogen) 25 mg/dL (8.4-25.7); Calc. Creatinine Clearance 73 mL/min (70-130); Calcium 8.2 mg/dL (7.8-10.44); Carbon Dioxide 25 mmol/L (23-31); Chloride 102 mmol/L (98-107); Estimated GFR 75; Glucose 113 mg/dL (83-110); Potassium 3.3 mmol/L (3.5-5.1); Sodium 135 mmol/L (136-145)
[2024-02-05] MEDS ORDERED: Potassium Chloride 10 MEQ TAB PO SCH (08:00)
[2024-02-05] MEDS: Metoprolol Tartrate 25 MG TAB PO SCH (08:40)
[2024-02-05] MEDS: Furosemide 20 MG TAB PO SCH (08:40)
[2024-02-05] MEDS: Potassium Chloride 10 MEQ TAB PO SCH (08:40)
[2024-02-05] MEDS: Pantoprazole DR 40 MG TAB PO SCH (08:40)
[2024-02-05 10:30] LABS: CO2 Tension 23.1 mmHg (35.0-45.0)
[2024-02-06 08:46] LABS: Anion Gap 11 mmol/L (10-20); BUN (Urea Nitrogen) 20 mg/dL (8.4-25.7); Calc. Creatinine Clearance 75 mL/min (70-130); Calcium 8.2 mg/dL (7.8-10.44); Carbon Dioxide 28 mmol/L (23-31); Chloride 101 mmol/L (98-107); Estimated GFR 77; Glucose 155 mg/dL (83-110); Potassium 3.3 mmol/L (3.5-5.1); Sodium 137 mmol/L (136-145)
[2024-02-06] MEDS: Tamsulosin HCl 0.4 MG CAP PO SCH ×2 (16:28→21:04)
[2024-02-07] MEDS: Melatonin 3 MG TAB PO PRN (01:56)
[2024-02-07 08:39] VITALS: BP 138/66; TEMP 97.6
[2024-02-07] MEDS: Potassium Chloride 20 MEQ TAB PO SCH (09:35)
== END 2024-02-07 11:09 | disposition home or self-care (01) | DRG 234 ==
LOC: SUATTDRO 05:31 → CCL 05:31 → 2NO 08:27 → CCU 02-02 08:03 → OBSVTOIN 02-02 09:21 → CCU 02-02 13:46 → 2NO 02-03 14:45
PROVIDERS: ADMIT Internal Medicine; ATTEND Family Medicine
PROC: 4A023N7 Measurement of Cardiac Sampling and Pressure, Left Heart, Percutaneous Approach (ICD-10-PCS; principal; 2024-02-01)
PROC: B2111ZZ Fluoroscopy of Multiple Coronary Arteries using Low Osmolar Contrast (ICD-10-PCS; 2024-02-01)
PROC: 3E033XZ Introduction of Vasopressor into Peripheral Vein, Percutaneous Approach (ICD-10-PCS; 2024-02-01)
PROC: 02100Z9 Bypass Coronary Artery, One Artery from Left Internal Mammary, Open Approach (ICD-10-PCS; 2024-02-02)
PROC: 021209W Bypass Coronary Artery, Three Arteries from Aorta with Autologous Venous Tissue, Open Approach (ICD-10-PCS; 2024-02-02)
PROC: 06BQ4ZZ Excision of Left Saphenous Vein, Percutaneous Endoscopic Approach (ICD-10-PCS; 2024-02-02)
PROC: 5A1221Z Performance of Cardiac Output, Continuous (ICD-10-PCS; 2024-02-02)
PROC: 02L70CK Occlusion of Left Atrial Appendage with Extraluminal Device, Open Approach (ICD-10-PCS; 2024-02-02)
PROC: 4A133R1 Monitoring of Arterial Saturation, Peripheral, Percutaneous Approach (ICD-10-PCS; 2024-02-02)
PROC: 30233J1 Transfusion of Nonautologous Serum Albumin into Peripheral Vein, Percutaneous Approach (ICD-10-PCS; 2024-02-02)
DX: I25.10 Atherosclerotic heart disease of native coronary artery without angina pectoris (principal); I10 Essential (primary) hypertension; E78.5 Hyperlipidemia, unspecified; N40.0 Benign prostatic hyperplasia without lower urinary tract symptoms; Z66 Do not resuscitate
CPT/HCPCS: 36140; 36415; 36416; 36430; 71045; 80048; 80053; 80061; 82805; 83036; 83735; 85025; 85610; 85730; 86850; 86900; 86901; 93005; 93010; 93306; 93458; 93798; 94002; 94760; 99152; 99153; A4311; A4648; C1751; C1760; C1769; C1894; G0378; J0171; J0360; J0461; J0665; J1100; J1642; J1644; J1650; J1815; J1885; J1940; J2001; J2150; J2250; J2260; J2272; J2405; J2440; J2704; J2720; J3010; J3370; J3475; J3480; J3490; P9045; Q9967; S0017

== ENCOUNTER 2024-09-06 10:30 | Inpatient (IN) | payer MEDICARE ==
[2024-09-06 10:22] VITALS: BMI 26.7
[2024-09-10] MEDS ORDERED: EPINEPHrine 1 MG/ML VIAL ONE (11:24)
[2024-09-10] MEDS ORDERED: Heparin 5,000 UNITS/ML VIAL ONE (11:24)
[2024-09-10] MEDS ORDERED: Bupivacaine PF 0.5% 30 ML VIAL ONE (11:24)
[2024-09-10] MEDS ORDERED: PROPOFOL 20 ML ONE (11:33)
[2024-09-10] MEDS ORDERED: Lidocaine 1% PF 5 ML VIAL ONE (11:34)
[2024-09-10] MEDS ORDERED: Protamine Sulfate 50 MG/5 ML VIAL ONE (11:34)
[2024-09-10] MEDS ORDERED: Ondansetron PF 4 MG/2 ML Vial ONE (11:34)
[2024-09-10] MEDS ORDERED: Heparin 10,000 UNITS/ 10 ML VIAL ONE (11:34)
[2024-09-10] MEDS ORDERED: Ketorolac Tromethamine 30 MG (1 mL) VIAL ONE (11:34)
[2024-09-10] MEDS ORDERED: CEFAZOLIN 2 GM VIAL ONE (11:46)
[2024-09-10] MEDS ORDERED: Rocuronium Bromide 10 MG/ML (10ML VIAL) ONE (12:03)
[2024-09-10] MEDS ORDERED: Glycopyrrolate 0.2 MG/ML 5 ML SYRINGE ONE (12:10)
[2024-09-10] MEDS ORDERED: PHENYLEPHRINE-NS 100 MCG/ML 10 ML SYRINGE ONE ×2 (12:10→12:46)
[2024-09-10] MEDS ORDERED: SUGAMMADEX SODIUM 200 MG/2 ML VIAL ONE ×2 (12:59→13:05)
[2024-09-10] MEDS ORDERED: Phenylephrine 40 MG/NS 250 ML 250 ML IVPB PRN (13:08)
[2024-09-10] MEDS ORDERED: hydrALAZINE 20 MG/ML VIAL SLOW IVP PRN (13:08)
[2024-09-10] MEDS ORDERED: fentaNYL 50 mcg/mL 1 mL Vial SLOW IVP PRN (13:08)
[2024-09-10] MEDS ORDERED: Ipratropium/Albuterol 3 ML NEB NEB PRN (13:08)
[2024-09-10] MEDS ORDERED: Ondansetron PF 4 MG/2 ML Vial IVP PRN (13:08)
[2024-09-10] MEDS ORDERED: Nitroglycerin 50 MG/250 ML BOT 250 ML IVPB PRN (13:08)
[2024-09-10] MEDS ORDERED: Labetalol HCl 100 MG/20 ML VIAL ONE (13:22)
[2024-09-10] MEDS: Sodium Chloride 0.9% 1,000 ML IV SCH (15:00)
[2024-09-10] MEDS: Nitroglycerin 50 MG/250 ML BOT 250 ML ONE (15:29)
[2024-09-10] MEDS ORDERED: Acetaminophen 325 MG TAB PO PRN (15:55)
[2024-09-10] MEDS ORDERED: Polyethylene Glycol 3350 17 GM Packet PO PRN (16:01)
[2024-09-10] MEDS: CEFAZOLIN 2 GM in Sodium Chloride 0.9% 100 ML IVPB SCH (17:31)
[2024-09-10] MEDS: CO Q-10 CAPSULE 100 MG PO SCH (20:25)
[2024-09-10] MEDS: Acetaminophen 325 MG TAB PO PRN (20:26)
[2024-09-10] MEDS: Valsartan 80 MG TAB PO SCH (20:26)
[2024-09-10] MEDS: Tamsulosin HCl 0.4 MG CAP PO SCH (20:26)
[2024-09-10] MEDS: Metoprolol Tartrate 25 MG TAB PO SCH (20:26)
[2024-09-10] MEDS: Oxybutynin ER 5 MG TAB PO SCH (20:26)
[2024-09-10] MEDS: traMADol HCl 50 MG TAB PO PRN (22:25)
[2024-09-11 11:07] VITALS: TEMP 98.2
[2024-09-11] MEDS: Magnesium Oxide 250 MG TAB PO SCH (11:47)
[2024-09-11] MEDS: Aspirin 81 mg Enteric Coated Tablet PO SCH (11:47)
[2024-09-11] MEDS: Pantoprazole 40 MG DR.TAB PO SCH (11:47)
[2024-09-11] MEDS: Hydrochlorothiazide 25 MG TAB PO SCH (11:47)
[2024-09-11] MEDS: Clopidogrel Bisulfate 75 MG TAB PO SCH (11:47)
[2024-09-24] MEDS ORDERED: (Evolocumab [Repatha Sureclick] 140 MG/ML Pen.Injctr) SC SCH (09:00)
== END 2024-09-11 14:25 | disposition home or self-care (01) | DRG 36 ==
LOC: SURG A 09-10 09:31 → CCU 09-10 14:48
PROVIDERS: ADMIT Thoracic Surgery (Cardiothoracic Vascular Surgery); ATTEND Thoracic Surgery (Cardiothoracic Vascular Surgery)
PROC: 037L3DZ Dilation of Left Internal Carotid Artery with Intraluminal Device, Percutaneous Approach (ICD-10-PCS; principal; 2024-09-10)
DX: I65.22 Occlusion and stenosis of left carotid artery (principal); M19.90 Unspecified osteoarthritis, unspecified site; N40.1 Benign prostatic hyperplasia with lower urinary tract symptoms; I25.10 Atherosclerotic heart disease of native coronary artery without angina pectoris; Z79.899 Other long term (current) drug therapy; Z79.82 Long term (current) use of aspirin; Z88.8 Allergy status to other drugs, medicaments and biological substances; Z98.890 Other specified postprocedural states; Z98.41 Cataract extraction status, right eye; Z98.42 Cataract extraction status, left eye; Z82.49 Family history of ischemic heart disease and other diseases of the circulatory system; Z83.3 Family history of diabetes mellitus; Z80.8 Family history of malignant neoplasm of other organs or systems; Z80.52 Family history of malignant neoplasm of bladder; Z86.73 Personal history of transient ischemic attack (TIA), and cerebral infarction without residual deficits; Z87.891 Personal history of nicotine dependence; Z88.2 Allergy status to sulfonamides
CPT/HCPCS: C1725; C1769; C1876; C1884; J0171; J0665; J1644; J1885; J2405; J2704; J2720; J7030